=== PATIENT | female | born 1965 | race Caucasian/White ===

== ENCOUNTER 2023-01-07 08:39 | Emergency (ER) | payer OTHER ==
[~2023-01-07] VITALS: Ht 162.6 cm; Wt 82.0 kg
[2023-01-07 09:28] LABS: URINE BLOOD DIPSTICK MODERATE (NEGATIVE); URINE COLOR YELLOW; URINE GLUCOSE - DIPSTICK NEGATIVE (NEGATIVE); URINE KETONE TRACE mg/dL (NEGATIVE); URINE LEUK ESTERASE TRACE (NEGATIVE); URINE PH 5.5 (4.5-8.0); URINE PROTEIN - DIPSTICK NEGATIVE (NEG-TRACE); URINE SPECIFIC GRAVITY >=1.030
[2023-01-07 09:40] LABS: URINE BILIRUBIN - DIPSTICK SEE COMMNET (NEGATIVE)
[2023-01-07 09:41] LABS: URINE NITRITE - DIPSTICK NEGATIVE (Negative)
[2023-01-07 09:42] LABS: URINE EPITHELIAL CELLS FEW EPI/hpf (0-FEW); URINE WBC 0-2 WBC/hpf (0-5)
[2023-01-07 09:48] LABS: ALBUMIN 5.1 g/dL (3.2-5.0); ALKALINE PHOSPHATASE 68 u/l (38-126); ANION GAP 17 (6-22 (CALC)); BASO% 0.6 % (0-3); BILIRUBIN, TOTAL 0.5 mg/dL (0.02-1.3); BUN 11 mg/dL (7-17); BUN/CREATININE RATIO 13 (12-20 (CALC)); CARBON DIOXIDE 23 mmol/l (22-30); CHLORIDE 104 mmol/l (95-108); CREATININE 0.9 mg/dL (0.5-1.0); EOS% 2.1 % (0-8); GFR FOR AFR.AMER. > 60 ML/MIN (>=60 (CALC)); GFR OTHER RACES > 60 ML/MIN (>=60 (CALC)); HEMATOCRIT 50.2 % (37.0-47.0); IMMATURE GRANULOCYTES 0.3 % (0.0-5.0); LYMPH% 24.9 % (15-41); MEAN CELL VOLUME 100.4 fL CALC (80.0-100.0); MEAN CORPUSCULAR HGB CONC 31.9 g/dL CAL (32.0-36.0); MONO% 9.4 % (2-13); NEUT# 5.97 thou/uL (2.00-7.15); NEUT% 62.7 % (42-76); POTASSIUM 4.4 mmol/l (3.5-5.1); RED CELL DISTRI WIDTH 13.4 % (11.5-15.5); SGOT/AST 32 u/l (14-36); SODIUM 140 mmol/l (137-146); TOTAL PROTEIN 8.5 g/dL (6.3-8.2)
[2023-01-07] MEDS ORDERED: OMNI-PAC300 MG PO (11:44)
[2023-01-07] MEDS ORDERED: NAPROXEN500 MG PO (11:44)
[2023-01-07 12:08] VITALS: BP 134/88
[2023-01-07] MEDS ORDERED: CEPHALEXIN500 MG PO (15:47)
== END 2023-01-07 12:11 | disposition home or self-care (01) | DRG 392 ==
LOC: ED 08:39
PROVIDERS: Family Medicine
DX: R10.9 Unspecified abdominal pain (principal); R31.9 Hematuria, unspecified; F17.200 Nicotine dependence, unspecified, uncomplicated